=== PATIENT | female | born 1960 | race Caucasian/White ===

== ENCOUNTER 2019-05-10 18:56 | Emergency (ER) | payer BC, OTHER ==
[~2019-05-10] VITALS: Ht 167.6 cm; Wt 100.0 kg
[~2019-05-10 18:56] MED LIST: ALBU8.5H8 IH; OMEP20CA15 PO; PRED10TA PO
[2019-05-10] MEDS ORDERED: nitroGLYCERIN 0.4mg SUBLingual tab SL PRN (19:15)
[2019-05-10] MEDS ORDERED: aspirin 81mg tab.chew PO ONE (19:15)
[2019-05-10 19:35] LABS: BASOPHILS % (AUTO) 0.4 % (0-1); EOSINOPHILS % (AUTO) 0.1 % (0-6); HEMATOCRIT 45.1 % (35.0-45.0); HEMOGLOBIN 15.6 g/dl (12.0-16.0); LYMPHOCYTES # (AUTO) 0.9 X10'3 (1.1-4.8); LYMPHOCYTES % (AUTO) 9.1 % (21-51); MEAN CORPUSCULAR HEMOGLOBIN 32.3 PG (27.0-31.0); MEAN CORPUSCULAR HGB CONC 34.6 g/dL (33.0-36.5); MEAN CORPUSCULAR VOLUME 93.4 FL (78-98); MEAN PLATELET VOLUME 8.1 FL (7.4-10.4); MONOCYTES # (AUTO) 0.4 X10'3 (0-0.9); MONOCYTES % (AUTO) 3.7 % (2-12); NEUTROPHILS % (AUTO) 86.7 % (42-75); PLATELET COUNT 295 X10'3 (140-440); RED BLOOD COUNT 4.83 X10'6 (4.20-5.60); RED CELL DISTRIBUTION WIDTH 13.4 % (11.5-14.5); WHITE BLOOD COUNT 10.4 X10'3 (4.5-11.0)
[2019-05-10] MEDS ORDERED: LORazepam 2 mg/ml vial IV ONE ×2 (19:35→20:15)
[2019-05-10] MEDS ORDERED: morphine 4 MG/ML inj SYRINge IV ONE ×2 (19:35→20:15)
[2019-05-10] MEDS ORDERED: ondansetron/PF 4mg/2ml inj IV ONE (19:35)
[2019-05-10] MEDS: normal saline 1000ML IV soln IVB ONE ×2 (19:35→19:51)
[2019-05-10] MEDS ORDERED: pantoprazole 40 MG vial IV ONE (19:35)
[2019-05-10 19:39] LABS: ALANINE AMINOTRANSFERASE 37 U/L (12-78); ALBUMIN 4.9 G/DL (3.4-5.0); ALBUMIN/GLOBULIN RATIO 1.3 (1.1-1.5); ALKALINE PHOSPHATASE 96 IU/L (46-116); ANION GAP 11 (8-16); ASPARTATE AMINO TRANSFERASE 29 U/L (10-37); BILIRUBIN,TOTAL 0.5 MG/DL (0.1-1.0); BLOOD UREA NITROGEN 7 MG/DL (7-18); BUN/CREATININE RATIO 10.3 (6.6-38.0); CALCIUM 9.9 MG/DL (8.5-10.1); CHLORIDE 103 MMOL/L (99-107); CREATININE 0.68 MG/DL (0.40-0.90); GLUCOSE 134 MG/DL (70-104); POTASSIUM 3.7 MMOL/L (3.5-5.1); SODIUM 140 MMOL/L (135-145); TOTAL CARBON DIOXIDE 25.9 MMOL/L (24-32); TOTAL PROTEIN 8.8 G/DL (6.4-8.2); eGFR 89 ML/MIN
[2019-05-10 19:55] LABS: LIPASE 107 U/L (73-393); TROPONIN I < 0.04 NG/ML (0.0-0.05)
[2019-05-10] MEDS ORDERED: mag hydrox/Alum hydrox/simeth 30ml oral suspension PO ONE (20:00)
[2019-05-10] MEDS ORDERED: LIDOcaine Viscous 15ml cup MM ONE (20:00)
[2019-05-10] MEDS ORDERED: PANT-47 PO (22:43)
[2019-05-10] MEDS ORDERED: SUCR1TAB PO (22:43)
[2019-05-10 23:04] VITALS: BP 108/74
== END 2019-05-10 23:07 | disposition home or self-care (01) ==
LOC: ER 18:56
DX: R07.89 Other chest pain (principal); R11.2 Nausea with vomiting, unspecified; R10.13 Epigastric pain; Z88.2 Allergy status to sulfonamides; Z79.899 Other long term (current) drug therapy
CPT/HCPCS: 36415; 71045; 80053; 83690; 84484; 85025; 93005; 96374; 96375; 96376; 99284; C9113; J2060; J2270; J2405